=== PATIENT | male | born 1945 | race Caucasian/White ===

== ENCOUNTER 2022-06-11 09:09 | Outpatient (CLI) | payer MEDICARE, BC, SELFPAY ==
[2022-06-11 13:42] LABS: Basophils Absolute Auto 0.03 K/uL (0.00-0.30); Basophils Percent Auto 0.4 % (0.0-3.0); Eosinophils Percent Auto 2.8 % (0.0-7.0); Hematocrit 46.9 % (37.0-53.0); Hemoglobin* 15.8 gm/dL (13.5-17.5); Lymphocytes Absolute Auto 1.56 K/uL (0.90-2.90); Lymphocytes Percent Auto 21.9 % (20-44); Mean Corpuscular HGB Conc 34 gm/dL (32-36); Mean Corpuscular Hemoglobin 30 pg (26-34); Mean Corpuscular Volume 89 fL (80-100); Monocytes Percent Auto 10.2 % (0.0-11.0); Neutrophils Absolute Auto 4.61 K/uL (1.7-7.0); Neutrophils Percent Auto 64.7 % (42.0-72.0); Platelet Count* 205 K/uL (140-440); RDW Coefficient of Variation % 12.5 % (11.5-15.5); Red Blood Count 5.27 m/uL (4.30-5.90); White Blood Count* 7.13 K/uL (4.50-11.00)
[2022-06-11 13:46] LABS: Slide Review Reflex No
[2022-06-11 13:51] LABS: Chloride* 99 mmol/L (96-114); Potassium* 4.4 mmol/L (3.6-5.1); Sodium* 136 mmol/L (135-149)
[2022-06-11 13:54] LABS: Blood Urea Nitrogen* 20 mg/dL (7-30); Carbon Dioxide* 28 mmol/L (20-32); Estimated Glomerular Filt Rate 78 ml/min; Glucose* 120 mg/dL (60-115)
[2022-06-11 13:55] LABS: Calcium* 9.3 mg/dL (8.4-10.6)
== END 2022-06-11 09:10 | disposition home or self-care (01) ==
PROVIDERS: PCP Nurse Practitioner Family; Visit Provider Nurse Practitioner Family
DX: Z01.818 Encounter for other preprocedural examination (principal)
CPT/HCPCS: 80048; 85025

== ENCOUNTER 2022-06-17 07:56 | Outpatient (RCR) | payer MEDICARE, BC, SELFPAY ==
--- NOTE | 2022-06-17 08:50 | PT.OPEX ---
PT [facility] Outpatient Eval INITIAL EVAL MEDICARE NEED SIGNATURE PT [facility] Outpatient Eval Start: 06/17/22 07:43 Freq: Status: Active Protocol: Document 06/17/22 07:44 AMADO (Rec: 06/17/22 08:48 AMADO [id number]) E-signed By Alexi Ignacio DPT Physical Therapy Outpatient Evaluation Insurance Information Insurance Name Medicare B,Blue Cross/Blue Shield Medical Diagnosis L knee oa Treating Diagnosis knee pain, muscle weakness Referring MD chikis castellanos Subjective Subjective Jose Alfredo comes into clinic for a pre op visit prior to his L TKA on 06/23/22. States the knee pain has been going on for several years now, where he feels like it really limits his walking ability. Once awhile his knees can wake him up in the middle of the night. Will be having his follow up in [place] as it is closer to home. Date of Surgery (If applicable) 06/23/22 Current Work Status Retired Precautions Treatment Precautions/Contraindications spinal cord stimulator Objective Other/Pertinent Objective GAIT/FUNCTIONAL MOBILITY decreased pace, decreased stance on L , antalgic gait pattern, decreased heel striek KNEE ROM L 8-104 before pain( performed in seated due to not being able to be supine today due to spine stimulator LLE MMT: WNL on R Hip flexion: L 4-/5 Hip abduction: L 4-/5 Hip extension: L 4-/5 Knee flexion: L4 /5 Knee extension: L 4-/5 TX: long sitting quad set x10 w/5 sec isometric hold performed ankle pumps x10 seated hamstring sets x10 w/5 sec isometric hold seated SAQ x10 w/cueing for isometric contraction at top of arc of motion with slow eccentric seated SLR flexion x10 w/ cueing for isometric contraction at top of arc of motion with slow eccentric seated LAQ x10 w/cueing for isometric contraction at top of arc of motion with slow eccentric seated heel slides x10 passive knee ext stretch x 1 min - education on longer duration post-op educated on frequency to perform HEP post operatively Assessment Assessment/Impression Pt is a 76 male who presents with concerns of L knee pain. Signs and symptoms likely indicating / consistent with L knee oa. Patient also has notable objective findings including gait abnormalities, limited ROM, impaired balance, decreased strength also likely contributing to the problem. Patient is a good candidate for skilled therapy to target deficits described above. Skilled PT intervention is necessary for use of therapeutic exercise manual therapy, neuromuscular re- education, gait training, and therapeutic activity. Functional impairments include difficulty with: walking, standing, sit to stand, stairs . See appropriate sections of PT eval for complete list of goals and POC. D/C plan and criteria is for pt to achieve the goals as listed below or until max rehab potential is met. Pt was agreeable with plan of care and goals established Plan of Care Rehabilitation Potential Good Physical Therapy Goals STG Pt will be independent with HEP within today to allow for independence and continued improvement past formal therapy-met Pt will comment and demonstrate understanding of stair and AD use and ambulation education within today -met Coordination/Communication With Referral Source Treatment Plan/Direct Interventions Gait Training,Joint Mobilization,Manual Therapy, Neuromuscular Re-ed,Self-Care/ Home Management,Therapeutic Activities,Therapeutic Exercises Frequency/Duration 1 visit as follow up will be at another location Patient Will Be Discharged From Therapy Independent w/HEP Evaluation Billing Complexity Low Certification Information Initial Certification Date 06/17/22 Ending Certification Date 09/10/22 Physician Comment/Change : Physician NPI Number #
== END 2022-11-19 23:59 | disposition home or self-care (01) ==
PROVIDERS: PCP Nurse Practitioner Family; Visit Provider Orthopaedic Surgery
DX: Z01.818 Encounter for other preprocedural examination (principal); M25.562 Pain in left knee; M17.12 Unilateral primary osteoarthritis, left knee; M62.81 Muscle weakness (generalized); R26.9 Unspecified abnormalities of gait and mobility; Z51.89 Encounter for other specified aftercare
CPT/HCPCS: 97110; 97161; 97535

== ENCOUNTER 2022-06-19 08:39 | Outpatient (CLI) | payer MEDICARE, BC, SELFPAY ==
[2022-06-19 16:12] LABS: SARS PCR* Negative SARS-CoV-2 (Negative)
== END 2022-06-19 08:40 | disposition home or self-care (01) ==
LOC: KYNREF 08:39
PROVIDERS: PCP Nurse Practitioner Family; Visit Provider Orthopaedic Surgery
DX: Z20.822 Contact with and (suspected) exposure to COVID-19 (principal); Z01.818 Encounter for other preprocedural examination
CPT/HCPCS: 87635

== ENCOUNTER 2022-06-23 08:26 | Day surgery (SDC) | payer MEDICARE, BC, SELFPAY ==
[2022-06-23] VITALS (44 sets, daily range): BP systolic 108–179; BP diastolic 53–105; PULSE 64–99; RESP 12–24; TEMP 36.3–37.3; O2SAT 92–100; BMI 31.9
[2022-06-23] MEDS: LACTATED RINGERS 1000 ML 1,000 ML 100 ML IV ×2 (08:25→11:34)
[2022-06-23] MEDS: CELECOXIB 200 MG CAPSULE PO (08:45)
[2022-06-23] MEDS: OXYCODONE (CR) 10 MG TAB.ER.12H PO (08:45)
[2022-06-23] MEDS: ACETAMINOPHEN 500 MG TABLET 1000 MG PO ×2 (08:45→20:42)
[2022-06-23] MEDS: SODIUM CHLORIDE 0.9 % (FLUSH) 10 ML SYRINGE IVF (08:45)
[2022-06-23] MEDS: MIDAZOLAM HCL 1 MG/ML inj IVP (09:48)
[2022-06-23] MEDS: fentaNYL 100 MCG/2 ML inj IVP (09:48)
--- NOTE | 2022-06-23 09:59 | SUR.PREOP ---
TIME?OUT:?0947 PT/RN/MDA?VERIFICATION?OF?SURGICAL?SITE,?PROCEDURE,?AND?CONSENT OBTAINED?PRIOR?TO?INVASIVE?PROCEDURE.
--- NOTE | 2022-06-23 10:19 | W.PM.NB ---
Nerve Block Nerve Block Time Seen by Provider: 09:15 Date Seen: 06/23/22 Type of block requested by surgeon for post-operative analgesia: adductor canal Side: left Time out performed: Yes Verification of patient name: Yes Verification of date of : Yes Site marking: site marked Name of person performing procedure: Omari Thopmson Continuous monitoring Was continuous monitoring of O2 sat, B/P, telemetry monitor, recorded every 15 minutes?: Yes Procedure Checklist: sterile prep, needles and gloves Ultrasound guided. Images saved: Yes Medications given in 5ml increments after negative aspiration: Ropivicaine %: 0.5 mL: 20 Needle gauge: 20 Decadron (mg): 10 Precedex (mcg): 25 Patient tolerated procedure well: Yes Additional comments: injected in 5ml increments after negative aspiration Block Charges Block Charge (with Pro Fee): Femoral Nerve Use of Ultrasound Machine for Block: Yes- US Guidance/pain block
--- NOTE | 2022-06-23 10:20 | W.PM.NB ---
Nerve Block Nerve Block Time Seen by Provider: 09:15 Date Seen: 06/23/22 Type of block requested by surgeon for post-operative analgesia: geniculars Time out performed: Yes Verification of patient name: Yes Verification of date of : Yes Site marking: site marked Name of person performing procedure: Omrai Thompson Continuous monitoring Was continuous monitoring of O2 sat, B/P, candy depositing machine operator, recorded every 15 minutes?: Yes Procedure Checklist: sterile prep, needles and gloves Ultrasound guided. Images saved: No Medications given in 5ml increments after negative aspiration: Ropivicaine %: 0.5 mL: 12 Needle gauge: 25 Patient tolerated procedure well: Yes Additional comments: Injected in 4ml increments after negative aspiration Block Charges Block Charge (with Pro Fee): Genicular Nerve Block Use of Ultrasound Machine for Block: No
[2022-06-23] MEDS: CEFAZOLIN 2 GM INJ IVP (10:37)
[2022-06-23] MEDS: TRANEXAMIC ACID 100 MG/ML INJ 1000 MG IV (10:41)
--- NOTE | 2022-06-23 11:36 | CRLHL7_ITS ---
For Patients: As a result of the Cures Act, medical imaging exams and procedure reports are released immediately into your electronic medical record. You may view this report before your referring provider. If you have questions, please contact your health care provider. Indication: POSTOP TKA Technique: Two views left knee Findings/Impression: Hardware from a left total knee arthroplasty is in satisfactory position. Bone alignment is normal. No sign of acute fracture. Postop changes are within normal limits. Dictated by Rupesh Love MD @ 06/23/2022 12:47:09 PM (Electronically Signed)
--- NOTE | 2022-06-23 11:38 | P.ORPRC_ITS ---
Procedure Note Date of procedure: 06/23/22 Procedure: PREOPERATIVE DIAGNOSIS: Left knee osteoarthritis POSTOPERATIVE DIAGNOSIS: Left knee osteoarthritis NAME OF OPERATION: Left total knee arthroplasty SURGEON: Jose Higginbotham MD STRATEGIC PLANNING DIRECTOR: ERICA Ram ANESTHESIA: General ESTIMATED BLOOD LOSS: 0 mL COMPLICATIONS: None SPECIMENS: None DRAINS: None PREOPERATIVE ANTIBIOTICS: Ancef 2 grams IMPLANTS: 1. J&J Attune # 7 posterior stabilized femur 2. # 7 fixed-bearing tibia 3. # 7 posterior stabilized, 5 mm fixed-bearing polyethylene 4. 41 patella INDICATIONS: The patient is a 76-year-old with a longstanding history of severe, unrelenting left knee pain secondary to end-stage (grade IV) left knee osteoarthritis. Despite appropriate nonoperative management, including activity modification, anti-inflammatories, qdib-ovt-duvyihg pain medication, bracing, physical therapy, and injections they continue to have pain and disability. Operative intervention was offered. The risks, benefits and expected outcomes were discussed in detail. These included but were not limited to: Infection, bleeding, injury to blood vessel or nerve, venous thromboembolism. All questions were answered to their satisfaction. Use of an assistant terminal manager was necessary throughout the case for patient positioning and safety, soft tissue retraction, and closure. PROCEDURE: Spinal anesthesia was administered. The patient was placed supine on the operating table. The assistant terminal manager made sure the patient was positioned appropriately. The lower extremity was prepped and draped in the usual sterile fashion. The limb was exsanguinated with the Isaias bandage. The pneumatic tourniquet was inflated to 300 mmHg. A standard anterior incision was made with the knee in flexion. Subcutaneous dissection was sharply taken through fascial layer #1. Full-thickness medial and lateral flaps were elevated. The assistant terminal manager retracted the soft tissues and protected them throughout the case. A standard medial parapatellar approach was made. The patella was everted. The infrapatellar fat pad was preserved. The menisci and cruciate ligaments were sharply d?brided. Marginal osteophytes were d?brided with the rongeur. The drill was used to penetrate the femoral canal. The canal was aspirated and irrigated with pulse lavage. The intramedullary femoral guide was placed for a 5-degree valgus cut, removing 10 mm off the distal femur. The saw was used to make the cut. Whitesides line and the trans epicondylar axis were marked. The femoral sizing guide was pinned onto the distal femur. Three degrees of external rotation nicely parallels the transepicondylar axis. Pins were placed for posterior referencing. The four-in-one cutting guide was pinned onto the distal femur. The anterior, posterior, and chamfer cuts were made. The assistant terminal manager protected the collateral ligaments. The box cutting guide was pinned. The box cuts were made. The boxed trial was placed and was an excellent fit. Drill holes for the lugs were made. Attention was then turned to the proximal tibia. The extramedullary tibial guide was placed for a neutral varus/valgus cut with 5 degrees of posterior slope, removing 2 mm based off the medial tibial surface. The assistant terminal manager protected the collateral ligaments and the neurovascular bundle. The saw was used to make the cut. Trial components were placed. The knee was nicely balanced in both flexion and extension. The trial components were removed. The tray was placed in appropriate rotation, parallel to our tibial cutting pins. It was pinned by the assistant terminal manager and the drill and the punch were used. The tray was removed. The punch was used again. We placed a bone plug in the femoral canal. Attention was then turned to the patella. [place] patellar thickness was 24 mm. The lobster claw resection guide was used with the 9.5 mm rubina. The saw was used to make the cut. Drill holes were made by the assistant terminal manager. The trial was placed and was an excellent fit. Cancellous surfaces were irrigated with pulse lavage and thoroughly dried by the assistant terminal manager. We cemented the tibial component, then the femoral component. We impacted the 5 mm polyethylene onto the tibial tray. The knee was brought into full extension. We then cemented the patellar component. Excessive cement was removed. The cement was allowed to harden. The knee was taken through a range of motion and was found to be nicely balanced in both flexion and extension. The patella tracks centrally. The assistant terminal manager did a three minute dilute Betadine solution soak. The assistant terminal manager irrigated the wound with 3 liters of normal saline via pulse lavage. The assistant terminal manager reapproximated the extensor mechanism with #1 Vicryl in an interrupted [id number]-er-gzgmj fashion. The assistant terminal manager then ran the extensor mechanism with a #1 PDO Stratafix. The assistant terminal manager closed the subcutaneous tissues with a 3-0 Stratafix and the skin with a running 3-0 Stratafix in a subcuticular fashion. Glue was used to seal the skin. The assistant terminal manager placed a dry dressing, YOJANA stocking, and Polar Care. Sponge and needle counts were correct x2. The patient tolerated the procedure well. There were no apparent complications. They were carefully transferred to the hospital bed and taken to the postanesthesia care unit in satisfactory condition. PLAN: The patient will be mobilized with physical therapy. Aspirin will be used for DVT prophylaxis. They will be discharged to home once medically appropriate.
[2022-06-23] MEDS: fentaNYL 100 MCG/2 ML inj 50 MCG IVP ×3 (12:36→12:53)
--- NOTE | 2022-06-23 12:40 | W.ANESCHARGE ---
Anesthesia Charges Start Date/Time Anesthesia Start Date: 06/23/22 Anesthesia Start Time: 10:27 Stop Date/Time Anesthesia Stop Date: 06/23/22 Anesthesia Stop Time: 12:23
[2022-06-23] MEDS: HYDROmorphone 0.5 mg/0.5 ml inj IVP ×5 (13:05→18:29)
[2022-06-23] MEDS: ACETAMINOPHEN 1,000 MG/100 ML INJ 1000 MG IVPB (13:22)
--- NOTE | 2022-06-23 14:38 | SUR.PHASEI ---
patient was still at a 9 of 10 for pain, anesthesia gave the okay to bring patient to the med/surg floor.
[2022-06-23] MEDS: LACTATED RINGERS 1000 ML 1,000 ML 75 ML IV (14:54)
[2022-06-23] MEDS: CEFAZOLIN 2 GM in 0.9 % SODIUM CHLORIDE Mini-bag 100 ML IVPB (16:00)
[2022-06-23] MEDS: OXYCODONE 5 MG TABLET PO ×3 (16:46→22:11)
--- NOTE | 2022-06-23 19:08 | PC.NURSE ---
PATIENT PLEASANT AND COOPERATIVE, ALERT AND ORIENTED, RATING PAIN IN LEFT KNEE 8-01/10 SEE EMAR FOR MANAGEMENT, USING CYRO CUFF TO LEFT KNEE WELL, DRESSING CDI TO LEFT KNEE, PATIENT UP TO CHAIR WITH A1 WALKER AND BELT TOLERATED FAIRLY, INCREASED PAIN WITH MOVEMENT MD AWARE NO CHANGES TO ORDERS, TOLERATING REGULAR DIET NO NAUSEA OR VOMITING.
--- NOTE | 2022-06-23 19:12 | PM.IMCN1 ---
Date of Consult Consult date: 06/23/22 Requesting Physician: Orthopedics Primary Care Provider: Natalia Castelan, FINISH INSPECTOR, ABLE BODIED TANKERMAN Consult Narrative Reason for consult: pain, HTN, GERD Narrative: Bradley Allen is a 76 year old male with a spinal stimulator for chronic pain in his left foot who underwent elective left total knee arthroplasty today for osteoarthritis. Postoperatively he is doing well except for pain in his left knee and leg. He says it feels like it comes from the left foot, which is chronic, but feels worse than usual and is going up his left leg all the way up to his thigh. He is not having any spasming. He also notes that he usually gets pretty constipated after surgery. He also notes that the 1st time he has tried to urinate postoperatively, he felt like he could not go. He does have occasional difficulty starting a stream at night and has been on Flomax in the past, but is not currently on that medication. 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 History of cataract History of DVT (deep vein thrombosis) Low back pain Primary hypertension Radiculitis Steatosis of liver Surgical History (Updated 06/23/22 @ 19:23 by Vielka Ricks MD) Cataract extraction status of right eye History of carpal tunnel release (~2012) History of hernia repair (~07/2016) History of spinal surgery (2016) History of tonsillectomy S/P total knee arthroplasty (06/23/22) Status post insertion of spinal cord stimulator (~08/2018) Family History Sister Breast cancer Dementia Father High blood pressure Dementia Mother Osteoarthritis Sister Breast cancer Social History (Updated 06/23/22 @ 19:17 by Vielka Ricks MD) Narrative: . 2 children. Retired dunbar and septic excavator, however, stays active. Alcohol, 1 beer and 1-2 brandies every evening. No illicit drug use. Non-smoker. DNR/DNI. Highest level of school completed/degree received: high school graduate Smoking Status: Former smoker What tobacco products do you use: cigarettes Smoking packs per day: 0.5 Smoking cigarettes per day: 10.0 Smoking quit date/years: >15 years ago Do you use any of these nicotine containing products: None How often do you have a drink containing alcohol: 4 or more times a week Alcohol type: beer and hard liquor How many standard drinks containing alcohol do you have on a typical day: 1 or 2 How often do you have six or more drinks on one occasion: Never AUDIT-C Alcohol total score: 4 Non-prescribed substance use: denies use Caffeine: Yes (coffee, 3 cups/am) service: No Meds Home Medications and Allergies Home Medications Medication Instructions Recorded Confirmed Type hydrochlorothiazide 25 mg tablet 25 mg PO DAILY 04/10/22 06/23/22 History lisinopril 40 mg tablet 40 mg PO DAILY 04/10/22 06/23/22 History omeprazole 20 mg capsule,delayed 20 mg PO DAILY 04/10/22 06/23/22 History release amlodipine 5 mg tablet 5 mg PO DAILY 06/23/22 06/23/22 History Allergies Allergy/AdvReac Type Severity Reaction Status Date / Time meperidine Allergy Verified 06/23/22 09:03 Exam Narrative: Exam Narrative: General: No acute distress. Awake alert oriented x3. HEENT: Normocephalic atraumatic, pupils equally round and reactive to light and accommodation. Oropharynx clear. Mucous membranes are moist. No cervical lymphadenopathy, thyromegaly or carotid bruits. No JVD. Cardiovascular: Regular rate and rhythm. No murmurs, gallops, or rubs. Chest: No increased work of breathing. Clear to auscultation bilaterally. No crackles or wheezes. Abdomen: Bowel sounds present. Soft, nondistended, nontender. No hepatosplenomegaly or masses. Extremities: Left knee bandage is clean, dry, and intact. No edema, no cyanosis or clubbing. Skin: No jaundice, no pallor, no rashes. Const: Vital Signs, click to edit/add: Vital Signs - 24 hr 06/23/22 08:54 06/23/22 09:48 06/23/22 09:50 Temperature 97.9 F Pulse Rate 76 71 67 Pulse Rate [Left P ulse Oximeter] Respiratory Rate 16 16 16 Blood Pressure 160/92 H 139/77 132/69 Blood Pressure [Ri ght Arm] Pulse Oximetry 98 99 97 Oxygen Delivery Me thod Room Air Nasal Cannula Nasal Cannula Oxygen Flow Rate 2 2 06/23/22 09:55 06/23/22 10:00 06/23/22 12:19 Temperature 97.7 F Pulse Rate 64 70 70 Pulse Rate [Left P ulse Oximeter] Respiratory Rate 16 16 15 Blood Pressure 122/73 129/73 114/58 L Blood Pressure [Ri ght Arm] Pulse Oximetry 97 98 97 Oxygen Delivery Me thod Nasal Cannula Nasal Cannula Room Air Oxygen Flow Rate 2 2 06/23/22 12:25 06/23/22 12:30 06/23/22 12:45 Temperature 97.7 F 97.7 F 97.7 F Pulse Rate 64 69 72 Pulse Rate [Left P ulse Oximeter] Respiratory Rate 17 17 15 Blood Pressure 109/53 L 116/78 135/91 H Blood Pressure [Ri ght Arm] Pulse Oximetry 96 98 96 Oxygen Delivery Me thod Room Air Room Air Room Air Oxygen Flow Rate 06/23/22 13:00 06/23/22 13:05 06/23/22 13:20 Temperature 97.7 F 97.7 F 97.7 F Pulse Rate 64 78 71 Pulse Rate [Left P ulse Oximeter] Respiratory Rate 24 18 19 Blood Pressure 146/83 H 122/88 150/80 H Blood Pressure [Ri ght Arm] Pulse Oximetry 97 99 98 Oxygen Delivery Me thod Room Air Room Air Room Air Oxygen Flow Rate 06/23/22 13:40 06/23/22 14:00 06/23/22 12:35 Temperature 97.7 F 97.7 F 97.7 F Pulse Rate 92 77 73 Pulse Rate [Left P ulse Oximeter] Respiratory Rate 16 12 14 Blood Pressure 151/78 H 173/92 H 138/68 Blood Pressure [Ri ght Arm] Pulse Oximetry 99 100 98 Oxygen Delivery Me thod Room Air Nasal Cannula Room Air Oxygen Flow Rate 2 06/23/22 12:40 06/23/22 12:50 06/23/22 12:55 Temperature 97.7 F 97.7 F 97.7 F Pulse Rate 71 75 64 Pulse Rate [Left P ulse Oximeter] Respiratory Rate 15 15 16 Blood Pressure 136/70 135/91 H 145/81 H Blood Pressure [Ri ght Arm] Pulse Oximetry 98 97 97 Oxygen Delivery Me thod Room Air Room Air Room Air Oxygen Flow Rate 06/23/22 13:10 06/23/22 13:15 06/23/22 13:25 Temperature 97.7 F 97.7 F 97.7 F Pulse Rate 78 69 74 Pulse Rate [Left P ulse Oximeter] Respiratory Rate 13 14 17 Blood Pressure 108/80 179/75 H 154/90 H Blood Pressure [Ri ght Arm] Pulse Oximetry 99 98 98 Oxygen Delivery Me thod Room Air Room Air Room Air Oxygen Flow Rate 06/23/22 13:30 06/23/22 13:35 06/23/22 13:45 Temperature 97.7 F 97.7 F 97.7 F Pulse Rate 73 77 87 Pulse Rate [Left P ulse Oximeter] Respiratory Rate 16 16 16 Blood Pressure 159/85 H 162/82 H 159/86 H Blood Pressure [Ri ght Arm] Pulse Oximetry 94 100 99 Oxygen Delivery Me thod Room Air Room Air Nasal Cannula Oxygen Flow Rate 2 06/23/22 13:50 06/23/22 13:55 06/23/22 14:05 Temperature 97.7 F 97.7 F 99.2 F Pulse Rate 77 73 76 Pulse Rate [Left P ulse Oximeter] Respiratory Rate 19 16 16 Blood Pressure 163/89 H 160/83 H 164/91 H Blood Pressure [Ri ght Arm] Pulse Oximetry 99 100 100 Oxygen Delivery Me thod Nasal Cannula Nasal Cannula Nasal Cannula Oxygen Flow Rate 2 2 2 06/23/22 14:10 06/23/22 14:15 06/23/22 14:20 Temperature 99.2 F 99.2 F 99.2 F Pulse Rate 82 80 86 Pulse Rate [Left P ulse Oximeter] Respiratory Rate 14 16 16 Blood Pressure 170/91 H 161/90 H 161/88 H Blood Pressure [Ri ght Arm] Pulse Oximetry 98 99 99 Oxygen Delivery Me thod Nasal Cannula Nasal Cannula Room Air Oxygen Flow Rate 2 2 0 06/23/22 14:30 06/23/22 14:45 06/23/22 15:00 Temperature 97.4 F L 97.7 F Pulse Rate 93 Pulse Rate [Left P ulse Oximeter] 89 90 Respiratory Rate 16 16 16 Blood Pressure Blood Pressure [Ri ght Arm] 136/93 H 131/69 148/87 H Pulse Oximetry 95 95 Oxygen Delivery Me thod Room Air Room Air Room Air Oxygen Flow Rate 0 0 06/23/22 15:30 06/23/22 15:00 06/23/22 16:00 Temperature Pulse Rate Pulse Rate [Left P ulse Oximeter] 84 84 Respiratory Rate 16 16 Blood Pressure Blood Pressure [Ri ght Arm] 126/68 139/73 Pulse Oximetry 96 96 97 Oxygen Delivery Me thod Nasal Cannula Nasal Cannula Oxygen Flow Rate 2.0 2.0 06/23/22 16:30 06/23/22 17:00 06/23/22 19:03 Temperature 98.2 F Pulse Rate Pulse Rate [Left P ulse Oximeter] 80 82 85 Respiratory Rate 16 16 16 Blood Pressure Blood Pressure [Ri ght Arm] 123/105 H 119/89 169/94 H Pulse Oximetry 97 98 93 Oxygen Delivery Me thod Nasal Cannula Nasal Cannula Room Air Oxygen Flow Rate 2.0 2.0 0 06/23/22 18:00 06/23/22 19:06 Temperature 98.2 F Pulse Rate Pulse Rate [Left P ulse Oximeter] 99 85 Respiratory Rate 16 16 Blood Pressure Blood Pressure [Ri ght Arm] 123/68 169/94 H Pulse Oximetry 94 93 Oxygen Delivery Me thod Room Air Room Air Oxygen Flow Rate 0 Documenting provider has reviewed patient's vital signs: yes Labs Labs: Ordering Physician: Jose Higginbotham M.D. Date of Service: 06/23/22 Procedure(s): XR knee LT 2V Accession Number(s): [id number] cc: Jose Higginbotham M.D.; Natalia Castelan APRN, [facility]~ For Patients: As a result of the Cures Act, medical imaging exams and procedure reports are released immediately into your electronic medical record. You may view this report before your referring provider. If you have questions, please contact your health care provider. Indication: POSTOP TKA Technique: Two views left knee Findings/Impression: Hardware from a left total knee arthroplasty is in satisfactory position. Bone alignment is normal. No sign of acute fracture. Postop changes are within normal limits. Dictated by Rupesh Love MD @ 06/23/2022 12:47:09 PM (Electronically Signed) Assessment and Plan Assessment and plan (1) S/P total knee arthroplasty: Problem comment: 06/23/2022 Dr. Higginbotham Pain control is challenging. He says that historically opioid still work for him. He is requiring high doses of narcotics. Monitor on continuous pulse oximetry. Patient states that his spinal stimulator does not start until he is sitting in a chair, but he is in bed in too painful to get into the chair at this time. I recommended to the nurse that she give a dose of IV pain medication in addition to the oral pain medication but he has been getting. Status: Acute (2) Primary hypertension: Problem comment: He is fairly hypertensive this evening, but he is also in pain. Will hold his antihypertensives tomorrow morning and have the daytime hospitalist see him tomorrow to assess blood pressure and whether not he needs antihypertensives resumed tomorrow. Status: Chronic (3) Complex regional pain syndrome of left lower extremity: Problem comment: Chronic left foot pain secondary to an accident many years ago. Patient has a spinal stimulator for this pain. Status: Acute (4) History of DVT (deep vein thrombosis): Problem comment: following trauma He is also quite painful which may cause him to be more sedentary, increasing his risk further for DVT. For VTE prophylaxis I recommend prophylactic dose Xarelto for 30 days. Status: Acute
[2022-06-23] MEDS: ASPIRIN 81 MG TABLET EC PO (20:43)
[2022-06-23] MEDS: SENNOSIDES 1 TAB TABLET 2 TAB PO (20:43)
[2022-06-24] MEDS: CEFAZOLIN 2 GM in 0.9 % SODIUM CHLORIDE Mini-bag 100 ML IVPB ×2 (00:21→08:17)
[2022-06-24] MEDS: OXYCODONE 5 MG TABLET PO ×3 (01:03→10:22)
[2022-06-24] MEDS: ACETAMINOPHEN 500 MG TABLET 1000 MG PO ×2 (02:44→09:05)
[2022-06-24 02:52] VITALS: BP 132/74; PULSE 74; RESP 16; TEMP 36.6; O2SAT 93
[2022-06-24] MEDS: ONDANSETRON 2 MG/ML inj 4 MG IVP (05:12)
--- NOTE | 2022-06-24 05:39 | PC.NURSE ---
Shift note: Pt is steadily progressing well with A1, walker and GB for ambulation. Tolerating pain very well, pain level has been rated between 5 and 7. At 0500, pt complained of nausea and Ondansetron given was effective. Pt has good amount of urine and tolerating oral fluid very well. Saline locked. Pt has pass gas this morning.
[2022-06-24 06:35] LABS: Eosinophils Percent Auto 0.1 % (0.0-7.0); Hemoglobin* 15.2 gm/dL (13.5-17.5); Immature Granulocytes Pct Auto 0.2 %; Mean Corpuscular HGB Conc 35 gm/dL (32-36); Mean Corpuscular Hemoglobin 30 pg (26-34); Mean Corpuscular Volume 88 fL (80-100); Monocytes Percent Auto 6.7 % (0.0-11.0); Platelet Count* 216 K/uL (140-440); RDW Coefficient of Variation % 12.4 % (11.5-15.5); Red Blood Count 5.03 m/uL (4.30-5.90); White Blood Count* 13.74 K/uL (4.50-11.00)
[2022-06-24 06:37] LABS: Slide Review Reflex No
[2022-06-24 06:56] LABS: Sodium* 133 mmol/L (135-149)
[2022-06-24 06:57] LABS: Potassium* 3.9 mmol/L (3.6-5.1)
[2022-06-24 07:00] LABS: Blood Urea Nitrogen* 21 mg/dL (7-30); Creatinine* 0.8 mg/dL (0.5-1.5); Est. Creatinine Clearance* 61.75; Estimated Glomerular Filt Rate 92 ml/min
[2022-06-24 07:14] LABS: Prothrombin Time 13.8 Seconds
[2022-06-24 07:45] VITALS: BP 151/83; PULSE 91; RESP 16; TEMP 37.1; O2SAT 92
[2022-06-24] MEDS: OMEPRAZOLE 20 MG CAPSULE DR PO (09:05)
[2022-06-24] MEDS: SENNOSIDES 1 TAB TABLET 2 TAB PO (09:05)
[2022-06-24] MEDS: RIVAROXABAN 10 MG TABLET PO (09:05)
--- NOTE | 2022-06-24 09:57 | PM.ORPN ---
Subjective Subjective Time Seen by Provider: 07:10 Date Seen: 06/24/22 Principal diagnosis: Status post left knee replacement Interval history: Jose Alfredo is comfortable this morning. He currently denies nausea or vomiting. He is planning to discharge to home today. He has a history of DVT due to trauma. He is planning physical therapy in [facility] starting next week. Ortho Exam Narrative Exam Narrative: Alert and oriented x3. Patient is in no acute distress. Converses without labored breathing. Hearing is grossly intact. Ambulates with a walker. Examination of the left knee shows the dressing is intact. Mild effusion. Mild soft tissue edema about the knee. CMS is intact left lower extremity. Bilateral calves are soft and nontender. Good quad strength Const Vital Signs, click to edit/add: Vital Signs - 24 hr 06/23/22 10:00 06/23/22 12:19 06/23/22 12:25 Temperature 97.7 F 97.7 F Pulse Rate 70 70 64 Pulse Rate [Left Pulse Oximeter] Respiratory Rate 16 15 17 Blood Pressure 129/73 114/58 L 109/53 L Blood Pressure [Right Arm] Pulse Oximetry 98 97 96 Oxygen Delivery Method Nasal Cannula Room Air Room Air Oxygen Flow Rate 2 06/23/22 12:30 06/23/22 12:45 06/23/22 13:00 Temperature 97.7 F 97.7 F 97.7 F Pulse Rate 69 72 64 Pulse Rate [Left Pulse Oximeter] Respiratory Rate 17 15 24 Blood Pressure 116/78 135/91 H 146/83 H Blood Pressure [Right Arm] Pulse Oximetry 98 96 97 Oxygen Delivery Method Room Air Room Air Room Air Oxygen Flow Rate 06/23/22 13:05 06/23/22 13:20 06/23/22 13:40 Temperature 97.7 F 97.7 F 97.7 F Pulse Rate 78 71 92 Pulse Rate [Left Pulse Oximeter] Respiratory Rate 18 19 16 Blood Pressure 122/88 150/80 H 151/78 H Blood Pressure [Right Arm] Pulse Oximetry 99 98 99 Oxygen Delivery Method Room Air Room Air Room Air Oxygen Flow Rate 06/23/22 14:00 06/23/22 12:35 06/23/22 12:40 Temperature 97.7 F 97.7 F 97.7 F Pulse Rate 77 73 71 Pulse Rate [Left Pulse Oximeter] Respiratory Rate 12 14 15 Blood Pressure 173/92 H 138/68 136/70 Blood Pressure [Right Arm] Pulse Oximetry 100 98 98 Oxygen Delivery Method Nasal Cannula Room Air Room Air Oxygen Flow Rate 2 06/23/22 12:50 06/23/22 12:55 06/23/22 13:10 Temperature 97.7 F 97.7 F 97.7 F Pulse Rate 75 64 78 Pulse Rate [Left Pulse Oximeter] Respiratory Rate 15 16 13 Blood Pressure 135/91 H 145/81 H 108/80 Blood Pressure [Right Arm] Pulse Oximetry 97 97 99 Oxygen Delivery Method Room Air Room Air Room Air Oxygen Flow Rate 06/23/22 13:15 06/23/22 13:25 06/23/22 13:30 Temperature 97.7 F 97.7 F 97.7 F Pulse Rate 69 74 73 Pulse Rate [Left Pulse Oximeter] Respiratory Rate 14 17 16 Blood Pressure 179/75 H 154/90 H 159/85 H Blood Pressure [Right Arm] Pulse Oximetry 98 98 94 Oxygen Delivery Method Room Air Room Air Room Air Oxygen Flow Rate 06/23/22 13:35 06/23/22 13:45 06/23/22 13:50 Temperature 97.7 F 97.7 F 97.7 F Pulse Rate 77 87 77 Pulse Rate [Left Pulse Oximeter] Respiratory Rate 16 16 19 Blood Pressure 162/82 H 159/86 H 163/89 H Blood Pressure [Right Arm] Pulse Oximetry 100 99 99 Oxygen Delivery Method Room Air Nasal Cannula Nasal Cannula Oxygen Flow Rate 2 2 06/23/22 13:55 06/23/22 14:05 06/23/22 14:10 Temperature 97.7 F 99.2 F 99.2 F Pulse Rate 73 76 82 Pulse Rate [Left Pulse Oximeter] Respiratory Rate 16 16 14 Blood Pressure 160/83 H 164/91 H 170/91 H Blood Pressure [Right Arm] Pulse Oximetry 100 100 98 Oxygen Delivery Method Nasal Cannula Nasal Cannula Nasal Cannula Oxygen Flow Rate 2 2 2 06/23/22 14:15 06/23/22 14:20 06/24/22 07:45 Temperature 99.2 F 99.2 F Pulse Rate 80 86 Pulse Rate [Left Pulse Oximeter] Respiratory Rate 16 16 Blood Pressure 161/90 H 161/88 H Blood Pressure [Right Arm] Pulse Oximetry 99 99 92 Oxygen Delivery Method Nasal Cannula Room Air Oxygen Flow Rate 2 0 06/24/22 07:45 06/23/22 14:30 06/23/22 14:45 Temperature 98.7 F 97.4 F L Pulse Rate 93 Pulse Rate [Left Pulse Oximeter] 91 89 Respiratory Rate 16 16 16 Blood Pressure Blood Pressure [Right Arm] 151/83 H 136/93 H 131/69 Pulse Oximetry 92 95 Oxygen Delivery Method Room Air Room Air Room Air Oxygen Flow Rate 0 06/23/22 15:00 06/23/22 15:30 06/23/22 15:00 Temperature 97.7 F Pulse Rate Pulse Rate [Left Pulse Oximeter] 90 84 Respiratory Rate 16 16 Blood Pressure Blood Pressure [Right Arm] 148/87 H 126/68 Pulse Oximetry 95 96 96 Oxygen Delivery Method Room Air Nasal Cannula Oxygen Flow Rate 0 2.0 06/23/22 16:00 06/23/22 16:30 06/23/22 17:00 Temperature Pulse Rate Pulse Rate [Left Pulse Oximeter] 84 80 82 Respiratory Rate 16 16 16 Blood Pressure Blood Pressure [Right Arm] 139/73 123/105 H 119/89 Pulse Oximetry 97 97 98 Oxygen Delivery Method Nasal Cannula Nasal Cannula Nasal Cannula Oxygen Flow Rate 2.0 2.0 2.0 06/23/22 19:03 06/23/22 18:00 06/23/22 19:06 Temperature 98.2 F 98.2 F Pulse Rate Pulse Rate [Left Pulse Oximeter] 85 99 85 Respiratory Rate 16 16 16 Blood Pressure Blood Pressure [Right Arm] 169/94 H 123/68 169/94 H Pulse Oximetry 93 94 93 Oxygen Delivery Method Room Air Room Air Room Air Oxygen Flow Rate 0 0 06/23/22 20:27 06/23/22 20:42 06/23/22 22:10 Temperature 98.2 F 98.2 F 98.2 F Pulse Rate Pulse Rate [Left Pulse Oximeter] 83 Respiratory Rate 16 Blood Pressure Blood Pressure [Right Arm] 141/81 H Pulse Oximetry 93 Oxygen Delivery Method Room Air Oxygen Flow Rate 0 06/23/22 23:00 06/23/22 23:00 06/24/22 02:52 Temperature 98.2 F 97.9 F Pulse Rate Pulse Rate [Left Pulse Oximeter] 81 74 Respiratory Rate 16 16 Blood Pressure Blood Pressure [Right Arm] 145/66 H 132/74 Pulse Oximetry 95 95 93 Oxygen Delivery Method Room Air Room Air Oxygen Flow Rate 0 0 Assessment and Plan Assessment and plan (1) S/P total knee arthroplasty: Problem details: 06/23/2022 Dr. Higginbotham Status: Acute (2) Primary hypertension: Problem details: He is fairly hypertensive this evening, but he is also in pain. Will hold his antihypertensives tomorrow morning and have the daytime hospitalist see him tomorrow to assess blood pressure and whether not he needs antihypertensives resumed tomorrow. Status: Chronic Assessment and Plan: Plan per hospitalist. 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 Patient has a spinal stimulator for this pain. Status: Acute (4) History of DVT (deep vein thrombosis): Problem details: following trauma He is also quite painful which may cause him to be more sedentary, increasing his risk further for DVT. For VTE prophylaxis Dr. Robledo feels Xarelto 10 mg for 12 days, then aspirin 81 mg twice daily for 18 days is sufficient. We also discussed frequent ambulation, every hour throughout the day and wearing Porter stockings for 1 month postsurgery. He can remove for 1 hour per day. When at rest in his recliner he will pump his ankles frequently. Status: Acute Plan Remove dressing in 1 week. Observe wound and phone Orthopedics with any questions or concerns Return to clinic in 1 week for a wound check Return to clinic in [address] Higginbotham Minimize narcotic use. Wean off and discontinue soon as possible. Activities as tolerated. No strenuous activity. Outpatient physical therapy as scheduled next week in [place]. Ice and elevate the operative extremity. No restriction on ice. We discussed his pain medication. He is fine with oxycodone for pain. He is tolerating this well. Aspirin has been discontinued.
[2022-06-24 10:21] VITALS: BP 161/88; PULSE 93; RESP 16; TEMP 37.1
--- NOTE | 2022-06-24 11:24 | PC.NURSE ---
Patient discharged to home with family. Patient verbalized understanding of discharge instructions and no further questions at this time. Patient alert and orientated. Up standby assist with walker and gait belt tolerating fairly. Rating pain in left knee 6-7 see mar for management. Polar pack to left knee and dressing to left knee clean, dry and intact. Tolerating regular diet. No nausea or vomiting. Patient left at 1106.
== END 2022-06-24 11:06 | disposition home or self-care (01) ==
LOC: OR 08:27 → MEDSURG 10:03
PROVIDERS: PCP Nurse Practitioner Family; Visit Provider Orthopaedic Surgery
PROC: (CPT 27447; principal; 2022-06-23 10:15)
DX: M17.12 Unilateral primary osteoarthritis, left knee (principal); I10 Essential (primary) hypertension; G90.522 Complex regional pain syndrome I of left lower limb; M79.672 Pain in left foot; K21.9 Gastro-esophageal reflux disease without esophagitis; M51.27 Other intervertebral disc displacement, lumbosacral region; Z86.718 Personal history of other venous thrombosis and embolism
CPT/HCPCS: 27447; 01402; 36415; 73560; 76942; 82565; 84132; 84295; 84520; 85025; 85610; 97110; 97116; 97161; 97165; 97535; A9270; C1776; J0131; J0330; J0690; J1100; J1170; J2250; J2405; J2704; J2795; J3010; J3490; J7120

== ENCOUNTER 2022-07-24 09:55 | Outpatient (CLI) | payer MEDICARE, BC, SELFPAY ==
--- NOTE | 2022-07-24 10:15 | CRLHL7_ITS ---
For Patients: As a result of the Cures Act, medical imaging exams and procedure reports are released immediately into your electronic medical record. You may view this report before your referring provider. If you have questions, please contact your health care provider. Indication: limited ROM, severe left knee pain, increased swelling Technique: Grayscale real-time imaging of the left quadriceps tendon performed with scanning of the right knee also performed for comparison. Comparison: X-rays 07/23/2022 Findings: Postop changes left knee. Quadriceps tendon intact. Subcutaneous edema. Complex joint effusion noted measuring 4.2 x 1.0 x 3.0 cm. Impression: No quadriceps tendon rupture. Quadriceps tendon is intact. Joint effusion measuring 4.2 x 1.0 x 3.0 cm with internal echoes suggesting expected postop blood products. Dictated by Rupesh Love MD @ 07/24/2022 11:13:29 AM (Electronically Signed)
== END 2022-07-24 09:56 | disposition home or self-care (01) ==
PROVIDERS: PCP Nurse Practitioner Family; Visit Provider Physician Assistant Surgical
DX: M25.562 Pain in left knee (principal); S76.119A Strain of unspecified quadriceps muscle, fascia and tendon, initial encounter; Z96.652 Presence of left artificial knee joint
CPT/HCPCS: 76882

== ENCOUNTER 2022-10-21 15:04 | Outpatient (CLI) | payer MEDICARE, BC, SELFPAY ==
--- OUTSIDE RECORDS SUMMARY | 2022-10-21 15:07 | XMS_ITS | Continuity of Care Document ---
Author Name Unknown Organization [facility] Address [address] [place] [address] Phone Care Team Providers Care Lamina Searcher Name Role Phone Scar Epstein MD Unavailable Unavailable Medications Medication Instructions Dosage Effective Dates (start - stop) Status Comments Percocet 5 mg-325 mg Tab 1-2 tablets every 4-6 hours - Active Senna Plus 8.6 mg-50 mg Tab 1-4 PO BID PRN - Active Procedures Procedure Date Office/outpatient visit,est, low 2007 Postop followup visit X-ray exam lower spine 2-3 views 2007 Low back disk surgery/decompress 2007 Advance Directives Directive Yes / No Effective Date File Name No Information Encounters Encounter Description Practice Location Reason(s) For Visit Diagnoses Date Provider Providers Copied on Encounter Office/outpat ient visit,est, low [facility], [address] [place], [place] [address], [place], [address], tel:[phone] [employer] No Information Tete Abbott. [facility], [address] [place] [address], [address], [place], [place], [id number] , [place]. tel:[phone] Referring Provider: Jonathan Medel, [facility] [address] [place], [address]. tel:[phone] [facility], [address] [place], [place] [address], [place], [address], [place] tel:[phone] [employer] No Information Tete Abbott. [facility], [address], [place], [place], [id number] , [place]. tel:[phone] [facility], [address] [place], [place] [address] [place] [address], [facility], [place] tel:[phone] [employer] No Information 8 Tete Abbott. [facility], [address], [address], [place], [place], [id number] , [place]. [phone] [facility]: [facility] [address] [place], [address]. tel:[phone] [facility], [address] [address], [place], [place], [facility], [place] tel:[phone] [facility] No Information 8 Tete Abbott. [facility], [address] [place] [address], [address], [place], [id number] , [place]. tel:[phone] Referring Provider: [facility] [address] [place], [address]. tel:[phone] [facility], [address], [address], [place] tel:[phone] [employer] No Information 8 Tete Abbott. [facility], [address], [address], [place], [place], [id number] , [place]. tel:[phone] Family History Family Member Type Diagnosis Age At Onset No Information Payers Payer name Insurance type Covered alliance party ID Arash lance(s) [facility] [id number] Social History Type Description Quantity Date Captured Comments Sex Male Smoking Status No Information Chief Complaint And Reason For Visit No Information Reason For Referral Reason For Referral No Information Plan Of Treatment Date Type Action Status No Information History Of Present Illness Encounter Date Complaint History Of Prese nt Illness No Information Functional Status Date Functional Assessmen t No Information Instructions Date Instruction Additional Infor mation No Information Assessments Type Assessment Date No Information Patient Care Teams Name Effective Dates (start - stop) Status Members No Information
[2022-10-21 16:12] LABS: Basophils Absolute Auto 0.02 K/uL (0.00-0.30); Basophils Percent Auto 0.3 % (0.0-3.0); Eosinophils Percent Auto 1.3 % (0.0-7.0); Hematocrit 43.8 % (37.0-53.0); Immature Granulocytes Abs Auto 0.02 K/uL (0.00-0.30); Immature Granulocytes Pct Auto 0.3 %; Lymphocytes Percent Auto 20.2 % (20-44); Mean Corpuscular HGB Conc 34 gm/dL (32-36); Mean Corpuscular Hemoglobin 30 pg (26-34); Mean Corpuscular Volume 87 fL (80-100); Monocytes Percent Auto 10.5 % (0.0-11.0); Neutrophils Absolute Auto 5.34 K/uL (1.7-7.0); Neutrophils Percent Auto 67.4 % (42.0-72.0); Platelet Count* 239 K/uL (140-440); RDW Coefficient of Variation % 12.6 % (11.5-15.5); Red Blood Count 5.02 m/uL (4.30-5.90); White Blood Count* 7.91 K/uL (4.50-11.00)
[2022-10-21 16:17] LABS: Slide Review Reflex No
[2022-10-21 17:04] LABS: C Reactive Protein* < 0.5 mg/dL (0.5-1.0)
[2022-10-21 17:24] LABS: Erythrocyte SedimentationRate* < 2 mm/hr (2-15)
[2022-10-21 17:25] LABS: Mononuclear WBC Body Fluid* 76 %; RBC, Body Fluid* 29000 Cells/uL; WBC, Body Fluid* 351 Cells/uL
[2022-10-21 17:43] LABS: BF Clarity* Slightly Cloudy; BF Color Xanthochromic; BF Total Volume* 10
[2022-10-21 17:44] LABS: Polynuclear WBC Body Fluid* 24 %
== END 2022-10-21 15:05 | disposition home or self-care (01) ==
PROVIDERS: PCP Nurse Practitioner Family; Visit Provider Orthopaedic Surgery
DX: M25.462 Effusion, left knee; Z96.652 Presence of left artificial knee joint
CPT/HCPCS: 36415; 85025; 85651; 86140; 87070; 87075; 87205; 89051; 89060

== ENCOUNTER 2024-09-21 09:09 | Outpatient (CLI) | payer MEDICARE, BC, SELFPAY | END 2024-09-21 09:10 | disposition home or self-care (01) | PROVIDERS: PCP Nurse Practitioner Family; Visit Provider Nurse Practitioner Family | DX: I10 Essential (primary) hypertension (principal); Z12.5 Encounter for screening for malignant neoplasm of prostate; Z13.1 Encounter for screening for diabetes mellitus | CPT/HCPCS: 80053; 80061; 83036; 85025; G0103 ==

== ENCOUNTER 2024-09-26 12:41 | Outpatient (CLI) | payer MEDICARE, BC, SELFPAY | END 2024-09-26 12:42 | disposition home or self-care (01) | PROVIDERS: PCP Nurse Practitioner Family; Visit Provider Nurse Practitioner Family | DX: R74.01 Elevation of levels of liver transaminase levels (principal); I10 Essential (primary) hypertension; Z11.59 Encounter for screening for other viral diseases; Z13.810 Encounter for screening for upper gastrointestinal disorder | CPT/HCPCS: 82390; 82728; 82784; 84443; 86231; 86258; 86364; 86803 ==

== ENCOUNTER 2024-10-03 07:10 | Outpatient (CLI) | payer MEDICARE, BC, SELFPAY ==
--- NOTE | 2024-10-03 07:15 | CRLHL7_ITS ---
For Patients: As a result of the Century Cures Act, medical imaging exams and procedure reports are released immediately into your electronic medical record. You may view this report before your referring provider. If you have questions, please contact your health care provider. INDICATION: Elevated liver enzymes. TECHNIQUE: Ultrasound abdomen limited. Sonographic images of the right upper quadrant were obtained using wong-scale and color Doppler images. COMPARISON: None. FINDINGS: Liver: The liver is enlarged measuring 19.4 centimeters in length. There is diffuse hepatic steatosis. Simple hepatic cyst measuring 0.7 and 1.2 centimeters are present. No intrahepatic duct dilatation. Patent portal vein with hepatopetal flow. Gallbladder: No stones, wall abnormality or pericholecystic fluid. Common bile duct: The common bile duct is likely normal for patient`s age measuring 7 mm. Pancreas: Pancreas is inadequately visualized secondary to overlying bowel gas. Right kidney: The right kidney measures 12.8 centimeters in length. No renal stone, focal renal lesion or hydronephrosis identified. Vasculature: The visualized abdominal aorta is unremarkable by grayscale imaging. IMPRESSION: 1. Hepatomegaly and diffuse hepatic steatosis. 2. Hepatic cysts. Dictated by Artis Jung MD @ 10/03/2024 2:03:02 PM (Electronically Signed)
== END 2024-10-03 07:11 | disposition home or self-care (01) ==
LOC: US 07:11
PROVIDERS: PCP Nurse Practitioner Family; Visit Provider Nurse Practitioner Family
DX: R74.8 Abnormal levels of other serum enzymes (principal); R16.0 Hepatomegaly, not elsewhere classified; K76.0 Fatty (change of) liver, not elsewhere classified; K76.89 Other specified diseases of liver
CPT/HCPCS: 76705